=== PATIENT | female | born 1990 | race Caucasian/White ===

== ENCOUNTER → 2018-06-20 | Outpatient (CLI) | payer BC, OTHER ==
[~2018-06-20] MED LIST: OXYC-865 PO; SUMA50TA34; bcp
--- NOTE | 2018-06-28 15:21 | RADIOLOGY IMAGING REPORT ---
[place] [facility] [place] NAME: TESSIE GOODMAN : [id number] MR: [id number] V: [id number] EXAM DATE: ORDERING PHYSICIAN: VALE DELACRUZ TECHNOLOGIST: Grace Begum RT(R)(CT) PROCEDURE:US RIGHT BREAST COMPLETE COMPARISON:None. INDICATIONS:nipple discharge FINDINGS: The Right breast Ultrasound has been previously dictated and linked with the diagnostic mammogram that was performed on the same day. DIAGNOSTIC CATEGORY 1--NEGATIVE. RECOMMENDATIONS: CLINICAL EVALUATION. IMPRESSION: BIRADS 1: Negative. Dictated by: Jose Márquez M.D. on 06/20/2018 at 17:31 Transcribed by: XIANG on 06/21/2018 at 10:01 Approved by: Jai Basurto on 06/28/2018 at 15:20 [facility]
--- NOTE | 2018-06-28 15:22 | RADIOLOGY IMAGING REPORT ---
FACILITY: [facility] [place] PATIENT NAME: TESSIE GOODMAN : [id number] MR: [id number] V: [id number] EXAM DATE: [id number] ORDERING PHYSICIAN: VALE DELACRUZ TECHNOLOGIST: Hannah Lyon PROCEDURE:BILATERAL DIAGNOSTIC DIGITAL MAMMOGRAM WITH CAD ASSISTED INTERPRETATION & 3D TOMOSYNTHESIS AND RIGHT BREAST ULTRASOUND. COMPARISON:None. INDICATIONS:nipple discharge FINDINGS: Mammographic finding: The breasts are heterogeneously dense. No masses or suspicious calcifications. Ultrasound findings: No cystic or solid masses are identified. The retroareolar region is unremarkable. DIAGNOSTIC CATEGORY 1--NEGATIVE. RECOMMENDATIONS: CLINICAL CORRELATION WITH REGUARD TO RIGHT NIPPLE DISCHARGE. SCREENING MAMMOGRAM AT AGE 41. IMPRESSION: BIRADS 1: Negative. Dictated by: Jose Márquez M.D. on 06/20/2018 at 17:30 Transcribed by: XIANG on 06/21/2018 at 10:06 Approved by: Jai Basurto on 06/28/2018 at 15:20 [facility]
== END ==
LOC: US 01:19
PROVIDERS: ATTEND Nurse Practitioner Family
DX: N64.52 Nipple discharge (principal)
CPT/HCPCS: 77062; 77066